=== PATIENT | male | born 1975 | race Caucasian/White ===

== ENCOUNTER 2023-09-17 09:55 | Emergency (ER) | payer OTHER ==
[~2023-09-17] VITALS: Ht 165.1 cm; Wt 79.5 kg
[2023-09-17 10:07] VITALS: TEMP 97.7
[2023-09-17 10:59] LABS: BASO % 0.4 % (0.0-2.0); EOS % 0.4 % (0.0-4.0); GRAN # 3.1 K/mm3 (1.4-6.5); GRAN % 60.1 % (42.2-75.2); HEMATOCRIT 42.5 % (42.0-52.0); HEMOGLOBIN 15.1 g/dl (13.5-18.0); LYMPH # 1.6 K/mm3 (1.2-3.4); MEAN CELL VOLUME 85 fl (80.0-100.0); MEAN CORPUSCULAR HEMOGLOBIN 30 pg (27-31); MEAN CORPUSCULAR HGB CONC 36 g/dl (33.0-37.0); MEAN PLATELET VOLUME 10.9 fl (7.4-10.4); MONO # 0.3 K/mm3 (0.1-0.6); MONO % 6.5 % (1.7-9.3); PLATELET COUNT 180 K/mm3 (130-400); RED BLOOD COUNT 5.03 M/mm3 (4.20-5.60); REDCELL DISTRIBUTION WIDTH-CV 12.5 % (11.5-14.5)
[2023-09-17 11:09] LABS: ACETONE,SERUM MODERATE
[2023-09-17 11:23] LABS: ALANINE AMINOTRANSFERASE 61 U/L (0-55); ALBUMIN 4.5 gm/dL (3.5-5.0); ANION GAP 13 mmol/L (7-16); AST,SGOT 32 U/L (5-34); BLOOD UREA NITROGEN 12 mg/dL (9-21); CALCIUM 9.7 mg/dL (8.4-10.2); CARBON DIOXIDE 21 mmol/L (22-29); CHLORIDE 101 mmol/L (98-107); GLUCOSE 397 mg/dL (70-99); POTASSIUM 4.2 mmol/L (3.5-4.5); SODIUM 135 mmol/L (136-145); TOTAL PROTEIN 7.6 gm/dL (6.2-8.1)
[2023-09-17 11:34] LABS: ALKALINE PHOSPHATASE 139 U/L (40-150)
[2023-09-17 11:59] LABS: COLLECTION METHOD CLEAN CATCH
[2023-09-17 12:13] LABS: URINE APPEARANCE Clear (CLEAR/HAZY); URINE COLOR Yellow (YELLOW)
[2023-09-17 12:15] LABS: SQUAMOUS EPITHELIAL None Seen /hpf (0-10); URINE BLOOD Negative (NEGATIVE); URINE GLUCOSE 2+ (NEGATIVE); URINE KETONE 2+ (NEGATIVE); URINE NITRATE Negative (NEGATIVE); URINE PROTEIN(semi-quant) Negative (NEGATIVE); URINE RBC None Seen /hpf (0-2); URINE UROBILINOGEN 0.2 E.U/dL (0.2-1.0)
[2023-09-17] MEDS ORDERED: GLUCOPHAGE500 MG/TAB PO (13:37)
[2023-09-17] MEDS ORDERED: FREESTYLE PREC1 EAC5 MC (14:08)
[2023-09-17 14:16] VITALS: BP 134/89; PULSE 69
[2023-09-17] MEDS ORDERED: PRINIVIL20 MG PO (14:16)
== END 2023-09-17 14:28 | disposition home or self-care (01) ==
LOC: COL.ER 09:55
PROVIDERS: Nurse Practitioner
DX: E11.65 Type 2 diabetes mellitus with hyperglycemia (principal); I10 Essential (primary) hypertension
CPT/HCPCS: J1815; J7030